=== PATIENT | male | born 1955 | race Caucasian/White ===

== ENCOUNTER 2018-06-02 17:07 | Emergency (ER) | payer OTHER ==
[~2018-06-02] VITALS: Ht 180.3 cm; Wt 72.6 kg
[2018-06-02] MEDS ORDERED: CLEOCIN HCL150 MG PO (18:47)
[2018-06-02 20:06] VITALS: BP 128/81
== END 2018-06-02 20:08 ==
LOC: ER 17:07
DX: L03.114 Cellulitis of left upper limb (principal); F17.210 Nicotine dependence, cigarettes, uncomplicated

== ENCOUNTER 2018-06-04 16:14 | Emergency (ER) | payer OTHER ==
[~2018-06-04] VITALS: Ht 180.3 cm; Wt 75.8 kg
--- NOTE | ~2018-06-04 | EKG ---
[address] [address] ELECTROCARDIOGRAM REPORT Name: KARTHIK TUTTLE Room #: DEP Gisselle#: [id number] Admission: 06/04/18 Attend Phys: Discharge: 06/04/18 Date of : 55 Report #: [id number] THIS REPORT FOR: //name// [facility] ED Test Date: 2018-06-04 Test Time: 18:50:02 Pat Name: KARTHIK TUTTLE Department: Room: Gender: Ecotherapist: Tiffanie Huynh : 1955 Requested By: Mary White Order Number: [id number] MD: Tommy Mohamud Measurements Intervals [place] Rate: 77 P: ID: QRS: 56 QRSD: 85 T: 72 QT: 386 QTc: 437 Interpretive Statements Atrial fibrillation No previous ECG available for comparison Electronically Signed On 06-07-2018 7:57:33 CDT by Tommy Mohamud [email or web address] <ELECTRONICALLY SIGNED> By: Tommy Mohamud MD, [facility] 06/07/18 0757 1850 1850 Tommy Mohamud MD, FACC /EPI
[~2018-06-04 16:14] MED LIST: CLEOCIN HCL150 MG PO
[2018-06-04 17:58] LABS: URINE BILIRUBIN NEGATIVE (Negative); URINE BLOOD 1+ (Negative); URINE CLARITY CLEAR; URINE COLOR YELLOW; URINE GLUCOSE-RANDOM* NEGATIVE (Negative); URINE KETONES NEGATIVE (Negative); URINE LEUKOCYTES-REFLEX NEGATIVE (Negative); URINE NITRITE-REFLEX NEGATIVE (Negative); URINE PROTEIN (DIPSTICK) NEGATIVE (Negative); URINE SPECIFIC GRAVITY <= 1.005 (1.005-1.035); URINE UROBILINOGEN 0.2 E.U./dl (0.2-1.0)
[2018-06-04 18:12] LABS: SQUAMOUS None Seen /LPF (0-3); URINE RBC 3-10 Few /HPF (0-2)
[2018-06-04 18:13] LABS: BACTERIA-REFLEX None Seen /HPF (None Seen); CASTS None Seen /LPF (None Seen); CRYSTALS None Seen /LPF (None Seen); URINE WBC-REFLEX None Seen /HPF (0-5)
[2018-06-04] MEDS ORDERED: FUROSEMIDE 40 M40 M1 PO (18:41)
[2018-06-04] MEDS ORDERED: PACERONE 200 M200 M1 PO (18:41)
[2018-06-04] MEDS ORDERED: LOPRESSOR50 PO (18:41)
[2018-06-04 18:42] LABS: ABSOLUTE NEUTROPHILS 5.1 thou/uL (1.4-8.2); BASOPHILS 0.5 % (0.0-2.0); EOSINOPHILS 2.8 % (0.0-3.0); HEMATOCRIT 43.5 % (42.0-52.0); HEMOGLOBIN 14.7 gm/dL (14.0-18.0); MCH 31.9 pg (26.0-34.0); MCHC 33.8 g/dL (28.0-37.0); MCV 94.3 fL (80.0-100.0); MONOCYTES 6.2 % (1.0-8.0); PLATELET COUNT 192 thou/uL (150-400); POLYS 55.5 % (36.0-66.0); RBC 4.61 mil/uL (4.50-6.00); RDW 14.2 % (10.5-14.5); WBC 9.2 thou/uL (4.0-11.0)
[2018-06-04] MEDS ORDERED: DIGOXIN125 MCG PO (18:42)
[2018-06-04] MEDS ORDERED: PRADAXA150 MG PO (18:42)
[2018-06-04] MEDS ORDERED: PEPCID20 MG PO (18:42)
[2018-06-04] MEDS ORDERED: ATORVASTATIN CA40 MG PO (18:43)
[2018-06-04] MEDS ORDERED: CAPTOPRIL100 MG PO (18:43)
[2018-06-04] MEDS ORDERED: TYLENOL325 MG PO (18:44)
[2018-06-04] MEDS ORDERED: SANTYL OINTMENT30 G1 TOP (18:44)
[2018-06-04 18:45] LABS: ANION GAP 9 mmol/L (7-16); BUN 12 mg/dL (7-18); CALCIUM 8.3 mg/dL (8.5-10.1); CHLORIDE 107 mmol/L (98-107); CO2 27 mmol/L (21-32); CREATININE 1.3 mg/dL (0.7-1.3); GLUCOSE 107 mg/dL (74-106); POTASSIUM 3.9 mmol/L (3.5-5.1); SODIUM 143 mmol/L (136-145)
[2018-06-04 18:53] LABS: TROPONIN-I <0.06 ng/mL (<0.06)
[2018-06-04 19:56] VITALS: BP 102/61
== END 2018-06-04 20:00 | disposition home or self-care (01) ==
LOC: ER 16:14
PROVIDERS: Nurse Practitioner Family
DX: R42 Dizziness and giddiness (principal); F17.210 Nicotine dependence, cigarettes, uncomplicated; I48.91 Unspecified atrial fibrillation; Z86.73 Personal history of transient ischemic attack (TIA), and cerebral infarction without residual deficits; W18.39XA Other fall on same level, initial encounter; Y92.129 Unspecified place in nursing home as the place of occurrence of the external cause; Y93.89 Activity, other specified; Y99.8 Other external cause status

== ENCOUNTER 2018-09-10 14:55 | Emergency (ER) | payer OTHER ==
[~2018-09-10] VITALS: Ht 180.3 cm; Wt 73.5 kg
--- NOTE | ~2018-09-10 | EKG ---
[address] [place] [address] ELECTROCARDIOGRAM REPORT Name: KARTHIK TUTTLE [facility] [id number] Admission: 09/10/18 Attend Phys: Discharge: Date of : 55 Report #: [id number] THIS REPORT FOR: //name// [facility] ED Test Date: 2018-09-10 Test Time: 15:08:04 Pat Name: KARTHIK TUTTLE Department: Room: Gender: Travel Manager: DEISY : 1955 Requested By: Suma Jones Order Number: [id number] MD: Tommy Mohamud Measurements Intervals [place] Rate: 91 P: [place]: QRS: 52 QRSD: 88 T: 91 QT: 361 QTc: 445 Interpretive Statements Atrial fibrillation Nonspecific T wave abnormality Compared to ECG 06/04/2018 18:50:02 No significant changes Electronically Signed On 09-10-2018 17:17:47 CDT by Tommy Mohamud [email or web address] <ELECTRONICALLY SIGNED> By: Tommy Mohamud MD, [facility] 09/10/18 1717 1508 1508 Tommy Mohamud MD, FACC /EPI
[~2018-09-10 14:55] MED LIST changes: +ATORVASTATIN CA40 MG PO; +CAPTOPRIL100 MG PO; +DIGOXIN125 MCG PO; +FUROSEMIDE 40 M40 M1 PO; +LOPRESSOR50 PO; +PACERONE 200 M200 M1 PO; +PEPCID20 MG PO; +PRADAXA150 MG PO; +SANTYL OINTMENT30 G1 TOP; +TYLENOL325 MG PO
[2018-09-10 15:25] LABS: ABSOLUTE NEUTROPHILS 7.3 thou/uL (1.4-8.2); BASOPHILS 0.8 % (0.0-2.0); EOSINOPHILS 1.6 % (0.0-3.0); HEMATOCRIT 48.5 % (42.0-52.0); HEMOGLOBIN 16.3 gm/dL (14.0-18.0); MCH 30.4 pg (26.0-34.0); MCHC 33.6 g/dL (28.0-37.0); MCV 90.4 fL (80.0-100.0); MONOCYTES 7.1 % (1.0-8.0); PLATELET COUNT 225 thou/uL (150-400); POLYS 64.5 % (36.0-66.0); RBC 5.37 mil/uL (4.50-6.00); RDW 14.5 % (10.5-14.5); WBC 11.3 thou/uL (4.0-11.0)
[2018-09-10 15:40] LABS: ANION GAP 11 mmol/L (7-16); BUN 13 mg/dL (7-18); CALCIUM 9.4 mg/dL (8.5-10.1); CHLORIDE 102 mmol/L (98-107); CO2 26 mmol/L (21-32); CREATININE 1.3 mg/dL (0.7-1.3); GLUCOSE 109 mg/dL (74-106); SODIUM 139 mmol/L (136-145)
[2018-09-10 15:50] LABS: TROPONIN-I <0.06 ng/mL (<0.06)
[2018-09-10 16:03] LABS: URINE BILIRUBIN NEGATIVE (Negative); URINE BLOOD 1+ (Negative); URINE CLARITY CLEAR; URINE COLOR YELLOW; URINE GLUCOSE-RANDOM* NEGATIVE (Negative); URINE KETONES NEGATIVE (Negative); URINE LEUKOCYTES-REFLEX NEGATIVE (Negative); URINE NITRITE-REFLEX NEGATIVE (Negative); URINE PROTEIN (DIPSTICK) NEGATIVE (Negative); URINE UROBILINOGEN 0.2 E.U./dl (0.2-1.0)
[2018-09-10 16:13] LABS: BACTERIA-REFLEX None Seen /HPF (None Seen); CASTS None Seen /LPF (None Seen); CRYSTALS None Seen /LPF (None Seen); SQUAMOUS None Seen /LPF (0-3); URINE RBC 3-10 Few /HPF (0-2); URINE WBC-REFLEX 0-5 Rare /HPF (0-5)
[2018-09-10] MEDS ORDERED: LORAZEPAM 22 MG/1 ML IV PUSH (17:39)
[2018-09-10] MEDS ORDERED: SEROQUEL 25 MG25 M1 PO (17:40)
[2018-09-10] MEDS ORDERED: PRADAXA150 MG PO (17:40)
[2018-09-10 19:44] VITALS: BP 116/75
== END 2018-09-10 19:45 ==
LOC: ER 14:55
PROVIDERS: Student in an Organized Health Care Education/Training Program
DX: R53.1 Weakness (principal); F17.210 Nicotine dependence, cigarettes, uncomplicated; I48.91 Unspecified atrial fibrillation; Z86.73 Personal history of transient ischemic attack (TIA), and cerebral infarction without residual deficits

== ENCOUNTER 2019-03-07 19:06 | Inpatient (IN) | payer OTHER ==
[~2019-03-07] VITALS: Ht 180.3 cm; Wt 66.7 kg
[~2019-03-07 19:06] MED LIST changes: +LORAZEPAM 22 MG/1 ML IV PUSH; +SEROQUEL 25 MG25 M1 PO
[2019-03-07 19:07] VITALS: BP 127/74
[2019-03-07 19:42] LABS: HEMATOCRIT 40.7 % (42.0-52.0); HEMOGLOBIN 13.7 gm/dL (14.0-18.0); MCH 30.4 pg (26.0-34.0); MCHC 33.8 g/dL (28.0-37.0); MCV 90.1 fL (80.0-100.0); RBC 4.52 mil/uL (4.50-6.00); RDW 15.6 % (10.5-14.5); WBC 11.2 thou/uL (4.0-11.0)
[2019-03-07] MEDS ORDERED: LISINOPRIL10 MG PO (19:42)
[2019-03-07] MEDS ORDERED: DEPAKOTE ER500 M1 PO (19:42)
[2019-03-07] MEDS ORDERED: PRADAXA150 MG PO (19:43)
[2019-03-07] MEDS ORDERED: BENADRYL25 MG PO (19:44)
--- NOTE | 2019-03-07 19:45 | NUR ---
IS [facility]. PER PT INPUT. STATES HE IS AMBULATORY, REPORTS INTERMITTANT LOWER RIGHT LEG CRAMPING WHEN IT IS COLD, HAS SUPERFICIAL LACERATIONS ON LOWER RIGHT LEG DUE TO CRAMPING REPORTS LEFT ARM CRAMPS WITH COMPRESSION FROM BP CUFF
[2019-03-07 19:50] LABS: CALCIUM 8.4 mg/dL (8.5-10.1); CREATININE 1.3 mg/dL (0.7-1.3); POTASSIUM 4.2 mmol/L (3.5-5.1)
[2019-03-07 20:40] LABS: URINE BILIRUBIN NEGATIVE (Negative); URINE BLOOD 1+ (Negative); URINE CLARITY CLEAR; URINE COLOR YELLOW; URINE GLUCOSE-RANDOM* NEGATIVE (Negative); URINE KETONES NEGATIVE (Negative); URINE LEUKOCYTES-REFLEX NEGATIVE (Negative); URINE NITRITE-REFLEX NEGATIVE (Negative); URINE PROTEIN (DIPSTICK) NEGATIVE (Negative)
[2019-03-07 20:47] LABS: AMP/METHAMP Negative (Negative); BARBITURATES Negative (Negative); BENZODIAZEPINES Negative (Negative); COCAINE Negative (Negative); METHADONE Negative (Negative); OPIATES Negative (Negative); PCP Negative (Negative)
[2019-03-07 20:52] LABS: BACTERIA-REFLEX None Seen /HPF (None Seen); CASTS None Seen /LPF (None Seen); CRYSTALS None Seen /LPF (None Seen); SQUAMOUS 0-3 Few /LPF (0-3); URINE RBC 0-2 Rare /HPF (0-2); URINE WBC-REFLEX None Seen /HPF (0-5)
--- NOTE | 2019-03-07 21:43 | NUR ---
PT IS ARGUMENTATIVE REGARDING NEED FOR ADMISSION, HAVE EXPLAINED TO HIM THAT HIS HEART WAS BEATING TOO FAST AND IRREGULAR. NEEDS TO STAY TO PREVENT COMPLICATIONS.
[2019-03-07 21:45] VITALS: BP 117/72
[2019-03-07 22:00] VITALS: BP 115/58
[2019-03-07] MEDS ORDERED: SEROQUEL 25 MG25 M1 PO (22:34)
[2019-03-08 03:22] VITALS: BP 91/57
--- NOTE | 2019-03-08 05:34 | NUR ---
Pt. arrived from ER on cardizem gtt. A fib RVR in the 120's then HR now in the mid 80's. Cardizem gtt. titrated down to 5 mg/hr. Denies any chest pain or shortness of breath. Pt. up ad morris in room with steady gait. Very anxious and irritable upon arrival. Asking if he can open window to smoke. Pt. informed this is a non smoking facility and he was offered nicotine patch which he agreed.HEALTH CARE / MEDICAL [employer]OB [employer]IT[employer] notified and nicotine patch ordered. Pt. has not taken his HS meds but he refused to take it when attempted to give.He stated he usually can control his behavior ,maybe argumentative at times but he backs off. Offered snacks which he ate. He slept some and he eventually calm down. Voided per urinal and used bathroom as well.Right lower leg cellulitis which pt. stated is starting to heal and dry up. Will continue to monitor.
[2019-03-08 05:35] LABS: HEMATOCRIT 37.2 % (42.0-52.0); HEMOGLOBIN 12.2 gm/dL (14.0-18.0); MCH 29.6 pg (26.0-34.0); MCHC 32.9 g/dL (28.0-37.0); RBC 4.14 mil/uL (4.50-6.00); RDW 15.6 % (10.5-14.5); WBC 10.4 thou/uL (4.0-11.0)
[2019-03-08 05:41] LABS: CALCIUM 7.7 mg/dL (8.5-10.1); POTASSIUM 3.7 mmol/L (3.5-5.1)
[2019-03-08 06:13] VITALS: BP 102/67
[2019-03-08 07:13] VITALS: BP 96/64
--- NOTE | 2019-03-08 14:10 | 2DMMODE ---
[facility] [address] [place] [address] 2 D/M-MODE ECHOCARDIOGRAM Name: KARTHIK TUTTLE Room #: 352-P ADM IN M.R.#: [id number] ������������� Admission: 03/07/19 ������������� Attend Phys: Delmar Rehman, Discharge: ��� ������������� ��� Date of : 55 Date of Service: 03/08/19 1410 �� Report #: [id number] �������� ��������������������������������������������[id number] THIS REPORT FOR: //name// APPROVED REPORT Study performed: 03/08/2019 11:17:58 EXAM: Comprehensive 2D, Doppler, and color-flow Echocardiogram Patient Location: Echo lab Room #: [facility] Status: routine BSA: 1.85 HR: 110 bpm BP: 96/64 mmHg Rhythm: Atrial Fibrillation Other Information Study Quality: Adequate Technically limited study due to uncooperative patient. Indications Atrial Fibrillation Hx: TIA, afib, HTN, HLP, tob. 2D Dimensions IVSd: 8.33 (7-11mm) LVOT Diam: 21.60 (18-24mm) LVDd: 59.61 mm PWd: 10.01 (7-11mm) LVDs: 51.94 (25-40mm) Aortic Root: 33.96 mm Volumes Left Atrial Volume (Systole) Single Plane 4CH: 64.17 mL Single Plane 2CH: 75.76 mL Aortic Valve AoV Peak Miles.: 1.17 m/s AO Peak Gr.: 5.49 mmHg LVOT Max P.33 mmHg LVOT Max V: 0.76 m/s MARGO Vmax: 2.38 cm2 Mitral Valve MV Decel. Time: 156.55 ms MV E Max Miles.: 1.24 m/s [facility] [address] [place] [address] 2 D/M-MODE ECHOCARDIOGRAM Name: KARTHIK TUTTLE Room #: 352-P [facility].#: [id number] ������������� Admission: 03/07/19 ������������� Attend Phys: Delmar Rehman, Discharge: ��� ������������� ��� Date of : 55 Date of Service: 03/08/19 1410 �� Report #: [id number] �������� ��������������������������������������������[id number] Pulmonary Valve PV Peak Miles.: 0.78 m/s PV Peak Gr.: 2.49 mmHg Tricuspid Valve TR Peak Miles.: 2.41 m/s RAP Estimate: 10.00 mmHg TR Peak Gr.: 23.15 mmHg PA Pressure: 33.00 mmHg Left Ventricle Left ventricle is mildly dilated. There is global hypokinesis of the left ventricle. There is normal left ventricular wall thickness. Left ventricular systolic function is severely decreased. LVEF is 25%. This study is not technically sufficient to allow evaluation of the LV diastolic function due to atrial fibrillation. Right Ventricle The right ventricle is normal size. Right ventricle is hypokinetic. Atria Left atrium is dilated. Right atrium is dilated. Aortic Valve The aortic valve is normal in structure. No aortic regurgitation is present. There is no aortic valvular stenosis. Mitral Valve The mitral valve is normal in structure. At least oderate mitral regurgitation with an eccentric jet. Tricuspid Valve The tricuspid valve is normal in structure. Trace to mild tricuspid regurgitation. Estimated PAP is 30-35mmHg. Pulmonic Valve The pulmonary valve is normal in structure. There is no pulmonic valvular regurgitation. Great Vessels The aortic root is normal in size. The ascending aorta is normal in size. IVC is dilated and collapses <50% with inspiration. Pericardium There is no pericardial effusion. [facility] [address] [place] [address] 2 D/M-MODE ECHOCARDIOGRAM Name: KARTHIK TUTTLE Room #: 352-P ADM IN M.R.#: [id number] ������������� Admission: 03/07/19 ������������� Attend Phys: Delmar Rehman, Discharge: ��� ������������� ��� Date of : 55 Date of Service: 03/08/19 1410 �� Report #: [id number] �������� ��������������������������������������������[id number] <Conclusion> Left ventricle is mildly dilated. LVEF is 25%. There is global hypokinesis of the left ventricle. The right ventricle is normal size. Right ventricle is hypokinetic. Left atrium is dilated. Right atrium is dilated. The aortic valve is normal in structure. The mitral valve is normal in structure. At least oderate mitral regurgitation with an eccentric jet. The tricuspid valve is normal in structure. Trace to mild tricuspid regurgitation. Estimated PAP is 30-35mmHg. The pulmonary valve is normal in structure. There is no pericardial effusion. ��������������������������������������������� <ELECTRONICALLY SIGNED> ���������������������������������������� By: Parmjit Howe MD ��������������������������������������������� 03/08/19 141 09 09 Parmjit Howe MD /INF
--- NOTE | 2019-03-08 14:47 | NUR ---
NICOLETTE MURPHY REFUSED MOST OF HIS MEDICATIONS THIS AM STATING HE DOES NOT NEED THAT MUCH MEDS. HE DENIES PAIN AT THIS TIME. JASON SHAWNA WAS DC HIS HEART RATE WAS BELOW 100. HIS HR DOES SPIKE WITH MINIMAL ACTIVITY LIKE GOING TO THE BATHROOM. HE IS ALERT ORIENTED X4. PLANS ON RETURNING TO [facility] TODAY OR [facility]. STATES HE FEELS MUCH BETTER.
--- NOTE | 2019-03-08 15:48 | NUR ---
dp sent initial referral to Centers, not sure of dc timeframe yet. DP notified Grace/admissions at center of referral.
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
[2019-03-08 16:01] VITALS: BP 121/71
--- NOTE | 2019-03-08 17:05 | EKG ---
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: LINSEY : 1955 Requested By: Jaun Phillip Order Number: [id number] MD: Tommy Mohamud Measurements Intervals [place] Rate: 155 P: [place]: QRS: 50 QRSD: 93 T: 90 QT: 278 QTc: 447 Interpretive Statements Atrial fibrillation Ventricular premature complex Anterior infarct, old Compared to ECG 09/10/2018 15:08:04 Ventricular premature complex(es) now present Electronically Signed On 03-08-2019 17:05:10 CDT by Tommy Mohamud [email or web address] ��������������������������������������������� <ELECTRONICALLY SIGNED> ���������������������������������������� By: Tommy Mohamud MD, [facility] ��������������������������������������������� 03/08/19 7766 22 22 Tommy Mohamud MD, [facility] /EPI
[2019-03-08 20:40] VITALS: BP 126/67
--- NOTE | 2019-03-09 03:09 | NUR ---
PT RESTING IN BED, APPEARS TO BE SLEEPING. PT AFIB ON MONITOR. PICKING AND CHOOSING WHAT MED ON EMAR HE WANTS TO TAKE. REMAINS ON RA.
[2019-03-09 04:32] VITALS: BP 130/73
[2019-03-09 07:30] VITALS: BP 102/58
[2019-03-09 11:22] VITALS: BP 92/51
--- NOTE | 2019-03-09 14:23 | NUR ---
care of pt assumed this am @ ~0700. pt noted to be sitting up in his chair this am awaiting breakfast and doctor visits. pt dressed in jeans, tennis shoes and no shirt. pt calm, cooperative and appropriate this am and thus far today. pt wondered about the results of his lab work and cxr he had done yesterday, pt informed of results. pt made aware of his tachy hr and a fib rhythm this am. dr. yun and elan/director inpatient headache program at informed his of need to be compliant w/ oral medications due to his hx and current afib. pt w/ a good appetite for breakfast this am. pt noted to be walking to the [place] emergency department w/ a steady, balanced and coordinated gait. pt denies co pain, soa and no n/v/d today.
[2019-03-09 15:48] VITALS: BP 102/81
== END 2019-03-09 18:05 | DRG 310 ==
LOC: ER 19:06 → 3W 20:11 → EROBS 20:11 → 3W 21:50
PROVIDERS: Emergency Medicine; Nurse Practitioner Family; ADMIT Internal Medicine
DX: I48.91 Unspecified atrial fibrillation (principal); K21.9 Gastro-esophageal reflux disease without esophagitis; F17.210 Nicotine dependence, cigarettes, uncomplicated; F29 Unspecified psychosis not due to a substance or known physiological condition; E78.5 Hyperlipidemia, unspecified; Z71.6 Tobacco abuse counseling; Z79.899 Other long term (current) drug therapy; Z86.73 Personal history of transient ischemic attack (TIA), and cerebral infarction without residual deficits
CPT/HCPCS: 10879

== ENCOUNTER 2019-05-28 14:55 | Inpatient (IN) | payer OTHER ==
[2019-05-28] VITALS (7 sets, daily range): BP systolic 97–117; BP diastolic 73–89
[~2019-05-28] VITALS: Ht 170.2 cm; Wt 67.0 kg
--- NOTE | ~2019-05-28 | HC ---
[facility] [place] [address] [place] [address] CONSULTATION Name: KARTHIK TUTTLE Room #: 202-P ADM IN M.R.#: [id number] Admission: 05/28/19 ������������������ Attend Phys: Shelby Johns MD Discharge: ������������������ Date of : 55 Report #: [id number] THIS REPORT FOR: //name// CC: Arthur Johns DATE OF SERVICE: 05/29/2019 IDENTIFICATION: Psychiatric consultation is requested for agitation. HISTORY OF PRESENT ILLNESS: The patient is a 63-year-old male with a reported past history of psychosis, but details are unclear as no past psychiatric records are available for review and the patient himself is an uncooperative historian. The patient was brought in the hospital from his nursing facility due to agitation. He was found to have atrial fibrillation with RVR and was admitted to the Cardiac Critical Care Unit. Since arrival, he has been agitated, combative and generally uncooperative with nursing staff. He has been refusing all nursing cares and refusing medications. He made a gesture overnight where he shaped his hand in the shape of a gun. He threatened to bite people's fingers. Security has had to be called. On interview today, the patient will not state what is agitating him except that he does not like the sitter and he feels that he does not want anyone watching him. ALLERGIES: None. MEDICATIONS: Reviewed and include Depakote extended release 500 mg at bedtime and Seroquel 12.5 mg twice daily. PAST MEDICAL HISTORY: Atrial fibrillation, hypertension, hyperlipidemia, history of TIA, GERD, COPD, cellulitis. FAMILY HISTORY: Unknown. SOCIAL HISTORY: The patient resides in a senior care facility, is reported to smoke cigarettes. LABORATORY AND DIAGNOSTIC DATA: Labs reviewed and notable for a Depakote level of less than 3. MENTAL STATUS EXAMINATION: The patient is lying in hospital bed. He has his curtain tied in a knot in an effort to block his view from the 1:1 sitter. He is restless and agitated with poor dentition. He denies that he threatened to [facility] [address] [place] [address] CONSULTATION Name: KARTHIK TUTTLE Room #: 202-P ADM IN M.R.#: [id number] Admission: 05/28/19 ������������������ Attend Phys: Sehlby Johns MD Discharge: ������������������ Date of : 55 Report #: [id number] bite a person, but states that his teeth are sharp and he bangs on the railing of the bed and states that he can break it with his teeth or with his hands. He would not answer any questions about suicidal ideation. He is paranoid, hostile, accusatory. Unclear at this time if he has any hallucinations but he demonstrates paranoid delusions. He is alert and oriented to person and place. Attention and concentration are impaired. Insight and judgment are poor. DIAGNOSIS: Psychosis, not otherwise specified. PLAN: The patient demonstrates complete lack of awareness of reasons for hospitalization and he is not able to verbalize understanding of the risks of refusing medication. At this time, he does not have the capacity to refuse medical treatment. I would continue the 1:1 sitter and utilize restraints if needed so that he can begin getting treatment for his atrial fibrillation and also receive his antibiotics. We will also schedule Depakote IV and increase the dose to 500 mg every 8 hours. We will add Haldol 5 mg IV every 4 hours as needed along with Ativan 2 mg IV every 4 hours as needed. Thank you for this consultation. We will continue to follow up. Please contact us with any questions or concerns. ��������������������������������������������� ���������������������������������������� By: ��������������������������������������������� 1020 1103 Evette Chapin MD /nt
[~2019-05-28 14:55] MED LIST changes: +BENADRYL25 MG PO; +DEPAKOTE ER500 M1 PO; +LISINOPRIL10 MG PO
[2019-05-28] MEDS ORDERED: KEFLEX500 M1 PO (15:11)
[2019-05-28 15:21] LABS: ABSOLUTE NEUTROPHILS 8.1 thou/uL (1.4-8.2); BASOPHILS 0.9 % (0.0-2.0); EOSINOPHILS 1.5 % (0.0-3.0); HEMATOCRIT 43.2 % (42.0-52.0); HEMOGLOBIN 14.3 gm/dL (14.0-18.0); LYMPHOCYTES 21.9 % (24.0-44.0); MCH 29.7 pg (26.0-34.0); MCHC 33.1 g/dL (28.0-37.0); MCV 89.9 fL (80.0-100.0); MONOCYTES 7.1 % (1.0-8.0); POLYS 68.6 % (36.0-66.0); RBC 4.81 mil/uL (4.50-6.00); RDW 16.1 % (10.5-14.5); WBC 11.8 thou/uL (4.0-11.0)
[2019-05-28] MEDS ORDERED: MUCINEX600 MG PO (15:25)
[2019-05-28] MEDS ORDERED: SEROQUEL 25 MG25 M1 PO (15:26)
[2019-05-28 15:29] LABS: ANION GAP 14 mmol/L (7-16); BUN 16 mg/dL (7-18); CALCIUM 8.3 mg/dL (8.5-10.1); CHLORIDE 96 mmol/L (98-107); CO2 19 mmol/L (21-32); CREATININE 1.2 mg/dL (0.7-1.3); GLUCOSE 156 mg/dL (74-106); POTASSIUM 4.6 mmol/L (3.5-5.1); SODIUM 129 mmol/L (136-145)
[2019-05-28 15:41] LABS: ALBUMIN 2.8 g/dL (3.4-5.0); MAGNESIUM 2.2 mg/dL (1.8-2.4); SGOT 62 U/L (15-37); SGPT 59 U/L (30-65); TOTAL BILIRUBIN 0.7 mg/dL (<0.1-1.0); TOTAL PROTEIN 6.6 g/dL (6.4-8.2); TROPONIN-I <0.06 ng/mL (<0.06)
[2019-05-28 15:42] LABS: APTT 27.1 Seconds (24.5-32.8); INR 1.1; PROTIME 11.9 Seconds (9.3-11.4)
[2019-05-28 15:44] LABS: LARGE PLATELETS RARE; PLATELET COUNT 225 thou/uL (150-400)
[2019-05-28 15:53] LABS: VALPROIC ACID (DEPAKENE)* < 3 ug/mL (50-100)
[2019-05-28 15:55] LABS: DIGOXIN < 0.2 ng/mL (0.9-2.0)
[2019-05-28 16:13] LABS: TSH 2.455 uIU/mL (0.358-3.740)
[2019-05-28 17:13] LABS: AMP/METHAMP Negative (Negative); BARBITURATES Negative (Negative); BENZODIAZEPINES Negative (Negative); COCAINE Negative (Negative); METHADONE Negative (Negative); OPIATES Negative (Negative); PCP Negative (Negative)
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
[2019-05-29] VITALS (7 sets, daily range): BP systolic 92–111; BP diastolic 50–72
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
[2019-05-29 08:46] LABS: HEMATOCRIT 41.2 % (42.0-52.0); HEMOGLOBIN 13.6 gm/dL (14.0-18.0); MCH 29.4 pg (26.0-34.0); MCV 89.1 fL (80.0-100.0); RBC 4.63 mil/uL (4.50-6.00); RDW 16.3 % (10.5-14.5); WBC 10.5 thou/uL (4.0-11.0)
[2019-05-29 09:04] LABS: ANION GAP 13 mmol/L (7-16); BUN 20 mg/dL (7-18); CALCIUM 8.8 mg/dL (8.5-10.1); CHLORIDE 103 mmol/L (98-107); CO2 23 mmol/L (21-32); CREATININE 1.4 mg/dL (0.7-1.3); GLUCOSE 170 mg/dL (74-106); MAGNESIUM 1.9 mg/dL (1.8-2.4); POTASSIUM 4.1 mmol/L (3.5-5.1); TROPONIN-I <0.06 ng/mL (<0.06)
[2019-05-29 09:06] LABS: SODIUM 139 mmol/L (136-145)
--- NOTE | 2019-05-29 09:32 | NUR ---
ASSUMED CARE AT SHIFT CHANGE, PATIENT SLEEP, THIS NURSE ATTEMPTED TO DO ASSESMENT, PATIENT REFUSES ASSESSMENT " YOU BETTER NOT TOUCH, I DON'T LIKE TO BE TOUCHED" VERBALLY ABUSIVE AND AGRESSIVE. HE ALSO REFUSED MORNING MEDS, SECURTY CALLED BECAUSE PATIENT THREATENT TO SPIT FOOD OUT AND START THROWING ITEMS FROM HIS TRAY " I'LL SPIT ALL FOOD ON YOU". DR LEON WENT IN TO THE ROOM TO HELP CALM THE PATIENT DOWN, AND PATIENT SCREAMED "GET OUT MY ROOM SOB" AND HE STARTED SCREAMING AGAIN THAT HE DOESN'T WANT ANY ONES HELP. DR CARDOZA PAGED AND WILL CONTINUE TO MONITOR PATIENT. 1:1 SPECIAL EFFECTS ARTIST AT BEDSIDE.
--- NOTE | 2019-05-29 09:54 | EKG ---
[place] [address] [employer] [place] [address] ELECTROCARDIOGRAM REPORT Name: KARTHIK TUTTLE Room #: 202-P ADM IN M.R.#: [id number] ������������������ Admission: 05/28/19 ������������������ Attend Phys: Shelby Johns MD Discharge: ������������������ Date of : 55 Report #: [id number] ����������������������������������������������������������������� [id number] THIS REPORT FOR: //name// [facility] ED Test Date: 2019-05-28 Test Time: 14:58:33 Pat Name: KARTHIK TUTTLE Department: Room: 202 Gender: M Manager Game: GIANNI : 1955 Requested By: Paddy Ordaz Order Number: [id number] MD: Tommy Mohamud Measurements Intervals [place] Rate: 175 P: [place]: QRS: 168 QRSD: 62 T: 88 QT: 256 QTc: 437 Interpretive Statements Atrial fibrillation with rapid V-rate Poor R wave progression Compared to ECG 03/07/2019 19:23:52 Ventricular premature complex(es) no longer present Electronically Signed On 05-29-2019 9:53:50 CDT by Tommy Mohamud [email or web address] ��������������������������������������������� <ELECTRONICALLY SIGNED> ���������������������������������������� By: Tommy Mohamud MD, [facility] ��������������������������������������������� 05/29/19 0953 1458 1458 Tommy Mohamud MD, [facility] /EPI
--- NOTE | 2019-05-30 01:20 | NUR ---
1944 POST FALL ASSESSMENT. WITNESSED BY NADINE ALFONSO AND CARLYLE RN IN ROOM. PT ALERT, DROWSY, IRRITABLE, AGITATED. SMALL LEFT EYEBROW LACERATION. TIMBER RIDER KATHLEEN NOTIFIED, ORDERS RECIEVED. FAMILY PT SISTER CECIL CALLED AND UPDATED.
--- NOTE | 2019-05-30 03:11 | NUR ---
ASSESSMENT CHARTED. VSS. AFIB CONTROLED. PT SLEEPING WELL AT THIS TIME. 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 ABX PER EMAR. NC [address]IONS IN [address]. WILL CONTINUE TO MONITOR AND WITH POC.
[2019-05-30 04:27] VITALS: BP 108/61
[2019-05-30 04:57] LABS: CALCIUM 8.2 mg/dL (8.5-10.1); CREATININE 1.3 mg/dL (0.7-1.3); POTASSIUM 3.7 mmol/L (3.5-5.1)
--- NOTE | 2019-05-30 07:54 | EKG ---
[place] [address] [facility] [place] [address] ELECTROCARDIOGRAM REPORT Name: KARTHIK TUTTLE Room #: 202-P ADM IN M.R.#: [id number] ������������������ Admission: 05/28/19 ������������������ Attend Phys: Shelby Johns MD Discharge: ������������������ Date of : 55 Report #: [id number] ����������������������������������������������������������������� [id number] THIS REPORT FOR: //name// 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 Analyst Consultant: DELORES : 1955 Requested By: Tommy Mohamud Order Number: [id number] MD: Tommy Mohamud Measurements Intervals [place] Rate: 104 P: [place]: QRS: -39 QRSD: 89 T: QT: 342 QTc: 450 Interpretive Statements Atrial fibrillation Left axis deviation Anteroseptal infarct, old Nonspecific ST and T wave abnormality Compared to ECG 05/28/2019 14:58:33 Heart rates have slowed Electronically Signed On 05-30-2019 7:54:24 CDT by Tommy Mohamud [email or web address] ��������������������������������������������� <ELECTRONICALLY SIGNED> ���������������������������������������� By: Tommy Mohamud MD, [facility] ��������������������������������������������� 05/30/19 0754 0735 0735 Tommy Mohamud MD, [facility] /EPI
[2019-05-30] MEDS ORDERED: LISINOPRIL5 MG PO (08:18)
[2019-05-30] MEDS ORDERED: PROAIR RESPICL90 MCG INH (08:19)
--- NOTE | 2019-05-30 10:49 | NUR ---
PT DISCHARGING TODAY BACK TO [facility] FAXED DC ORDERS/SUMMARY TO FACILITY SPOKE WITH JUSTINE IN ADM SHE RECEIVED AND ARRANGED TRANSPORTATION VIA [facility]AN AND 3L 02 FOR 1400 TODAY. LEFT MSG WITH PT'S SISTER (CECIL) OF DC AND TIME OF TRANSPORT. UNIT NOTIFIED AND CHART COPY PER US. RN TO CALL REPORT TO [phone].
[2019-05-30 10:56] VITALS: BP 107/62
[2019-05-30 11:22] VITALS: BP 107/62
--- NOTE | 2019-05-30 12:10 | NUR ---
ASSUMED CARE OF PT AT SHIFT CHANGE. ASSESSMENTS CHARTED. PT REFUSING TO ALLOW FULL ASSESSMENTS DONE, PT REFUSED PO MEDS THIS AM. PT ON ROOM AIR, REFUSING TO WEAR O2. PT HAS FLAT AFFECT, DOES NOT ALWAYS ANSWER QUESTIONS. SITTER IN ROOM WITH PT, ASSISTS PT WITH USING URINAL. PT INCONTINENT AT TIMES. BED ALARM ON, FALL PRECAUTIONS IN PLACE. PLAN IS TO DC BACK TO [facility] THIS SHIFT. WILL CALL REPORT TO FACILITY.
--- NOTE | 2019-05-30 12:41 | NUR ---
WOUND CARE CONSULT; ASSESSMENT REVEALED A REDDENED BUTTOCKS/ADAM AREAS CONSISTANT WITH INCONTINECE. NO OPEN AREAS. ALL AREAS ARE BLANCHABLE. RECOMMENDATION; ZGUARD DAILY/PRN WITH INCONTINET EPISODES. RN PRESENT
--- NOTE | 2019-05-30 13:26 | NUR ---
ATTEMPTED TO CALL REPORT TO [facility] THREE TIMES, THE THIRD TIME GOING TO [facility]. [facility] LEFT INFORMING THAT PT IS RETURNING TO [facility] AND WILL BE TRANSPORTED AT 1400. NUMBER GIVEN TO RETURN CALL.
--- NOTE | 2019-05-30 16:03 | NUR ---
patient admits from [facility] Patient to dc to facility today. Dc senior planner arranging transport for return. SP with patient and RN sp with patient to alert of dc to [facility] today. Chart copied. Orders faxed prior to dc no further needs.
== END 2019-05-30 15:13 | DRG 190 ==
LOC: ER 14:55 → EROBS 15:59 → 2N 16:37
PROVIDERS: Emergency Medicine; Internal Medicine; ADMIT Internal Medicine
DX: J44.1 Chronic obstructive pulmonary disease with (acute) exacerbation (principal); I50.23 Acute on chronic systolic (congestive) heart failure; L03.116 Cellulitis of left lower limb; N17.9 Acute kidney failure, unspecified; I11.0 Hypertensive heart disease with heart failure; K21.9 Gastro-esophageal reflux disease without esophagitis; E78.5 Hyperlipidemia, unspecified; F29 Unspecified psychosis not due to a substance or known physiological condition; I48.2 Chronic atrial fibrillation; F17.210 Nicotine dependence, cigarettes, uncomplicated; Z86.73 Personal history of transient ischemic attack (TIA), and cerebral infarction without residual deficits; Z79.899 Other long term (current) drug therapy; Z91.19 Patient's noncompliance with other medical treatment and regimen
CPT/HCPCS: 10081